=== PATIENT | male | born 1935 | race Caucasian/White ===

== ENCOUNTER 2021-02-27 18:31 | Observation (INO) | payer MEDICARE ==
[2021-02-27 20:06] LABS: ALT (SGPT) 37 U/L (8-55); AST (SGOT) 34 U/L (5-34); Albumin 4.3 g/dL (3.4-4.8); Alkaline Phosphatase 62 U/L (40-110); Anion Gap 15 mmol/L (10-20); BUN (Urea Nitrogen) 12 mg/dL (8.4-25.7); Bilirubin, Total 0.6 mg/dL (0.2-1.2); CK (CPK) 43 U/L (30-200); Calc. Creatinine Clearance 0 mL/min (70-130); Calcium 8.9 mg/dL (7.8-10.44); Carbon Dioxide 23 mmol/L (23-31); Chloride 104 mmol/L (98-107); Globulin 2.9 g/dL (2.4-3.5); Glucose 99 mg/dL (83-110); Lipase 11 U/L (8-78); Potassium 4.3 mmol/L (3.5-5.1); Protein, Total 7.2 g/dL (5.8-8.1); Sodium 138 mmol/L (136-145)
[2021-02-27 20:17] LABS: #Basophils 0.1 10x3/uL (0.0-0.2); #Eosinphils 0.1 10x3/uL (0.0-0.5); #Monocytes 1.1 10x3/uL (0.0-1.1); #Neutrophils 6.3 10x3/uL (1.5-8.4); %Basophils 0.8 % (0.0-2.0); %Eosinophils 1.2 % (0.0-6.0); %Lymphocytes 10.1 % (18.0-47.0); %Monocytes 13.1 % (0.0-10.0); Hemoglobin 15.3 g/dL (13.5-17.5); Mean Corpuscular HGB CONC 33.3 g/dL (32.0-36.0); Mean Corpuscular Hemoglobin 29.3 pg (27.0-33.0); Mean Platelet Volume 11.4 fl (7.4-10.4); Platelet Count 102 10x3/uL (150-450); RBC Distribution Width 13.5 % (11.5-14.5); Red Blood Cell (RBC) Count 5.23 10x6/uL (4.32-5.72); White Blood Cell (WBC) Count 8.5 10x3/uL (3.5-10.5)
[2021-02-27 20:37] LABS: Bilirubin Neg (Negative); Blood, Urine 50 (Negative); Clarity Clear (Clear); Glucose, Urine (Dipstick) Normal (Negative); Ketone, Urine Negative (Negative); Leukocyte Negative (Negative); Nitrite Negative (Negative); Protein, Urine (Dipstick) 30 mg/dl (Neg-Trace); Urobilinogen Normal mg/dL (Less than 2)
[2021-02-27 20:48] LABS: Bacteria/HPF 1+ HPF (None Seen); Squamous Epithelial 0-3 HPF (0-3); Transitional Epithelial 0-3 HPF (None Seen)
[2021-02-28] MEDS ORDERED: Calcium Carbonate 500 MG ChewTAB PO PRN (01:41)
[2021-02-28] MEDS ORDERED: Acetaminophen 325 MG TAB PO PRN (01:41)
[2021-02-28] MEDS ORDERED: Senokot S 8.6-50 MG TAB PO PRN (01:41)
[2021-02-28] MEDS ORDERED: HYDROcodone/Acetaminophen 5/325 mg Tablet PO PRN (01:41)
[2021-02-28] MEDS ORDERED: Ondansetron PF 4 MG/2 ML Vial IVP PRN (01:41)
[2021-02-28 01:44] LABS: SARS-CoV-2 NAA Rapid Test DETECTED (NotDetected)
[2021-02-28] MEDS ORDERED: hydrALAZINE 20 MG/ML VIAL SLOW IVP PRN (01:44)
[2021-02-28] MEDS ORDERED: Losartan 25 MG TAB PO SCH (02:15)
[2021-02-28] MEDS ORDERED: Amlodipine 5 MG TAB PO SCH (02:15)
[2021-02-28] MEDS ORDERED: Amlodipine 5 MG TAB ONE (03:40)
[2021-02-28] MEDS ORDERED: Losartan 25 MG TAB ONE (03:40)
[2021-02-28 05:12] LABS: Anion Gap 14 mmol/L (10-20); BUN (Urea Nitrogen) 12 mg/dL (8.4-25.7); Calc. Creatinine Clearance 0 mL/min (70-130); Calcium 8.4 mg/dL (7.8-10.44); Carbon Dioxide 23 mmol/L (23-31); Chloride 104 mmol/L (98-107); Glucose 100 mg/dL (83-110); Magnesium 1.7 mg/dL (1.6-2.6); Potassium 3.6 mmol/L (3.5-5.1); Sodium 137 mmol/L (136-145)
[2021-02-28] MEDS ORDERED: Zinc Gluconate 50 MG TAB PO SCH (09:00)
[2021-02-28] MEDS: Losartan Potassium 50 MG TAB PO SCH (10:22)
[2021-02-28] MEDS: Amlodipine 5 MG TAB PO SCH (10:22)
[2021-02-28] MEDS: Ascorbic Acid 500 mg Chewable Tablet PO SCH (10:22)
[2021-02-28] MEDS: Enoxaparin Sodium 40 MG/0.4 ML SYRINGE SC SCH (10:22)
[2021-02-28] MEDS: Cholecalciferol 1,000 UNITS (25 MCG) TAB PO SCH (10:23)
[2021-02-28] MEDS: Zinc Sulfate 220 MG CAP PO SCH (10:23)
[2021-02-28] MEDS: Carbidopa/Levodopa 25-100 mg Tablet PO SCH ×3 (10:24→18:30)
[2021-02-28 12:38] VITALS: BMI 37.5
[2021-03-01] MEDS: Carbidopa/Levodopa 25-100 mg Tablet PO SCH ×2 (01:45→06:45)
[2021-03-01 05:50] LABS: Anion Gap 13 mmol/L (10-20); BUN (Urea Nitrogen) 15 mg/dL (8.4-25.7); Calc. Creatinine Clearance 86 mL/min (70-130); Calcium 8.4 mg/dL (7.8-10.44); Carbon Dioxide 24 mmol/L (23-31); Chloride 103 mmol/L (98-107); Glucose 97 mg/dL (83-110); Potassium 3.4 mmol/L (3.5-5.1); Sodium 137 mmol/L (136-145)
[2021-03-01 06:43] LABS: Hemoglobin 14.3 g/dL (13.5-17.5); Mean Corpuscular HGB CONC 33.3 g/dL (32.0-36.0); Mean Corpuscular Volume 87.2 fl (81.2-95.1); Mean Platelet Volume 11.7 fl (7.4-10.4); Platelet Count 168 10x3/uL (150-450); RBC Distribution Width 13.5 % (11.5-14.5); Red Blood Cell (RBC) Count 4.93 10x6/uL (4.32-5.72); White Blood Cell (WBC) Count 6.3 10x3/uL (3.5-10.5)
[2021-03-01 07:28] LABS: MDiff Complete? YES; Platelet Morphology Comment Appears Adequate
[2021-03-01 07:29] LABS: RBC Morphology Normal
[2021-03-01 07:32] LABS: Band 7 % (5-11); Lymphocytes 11 % (21-51); Monocytes 18 % (0-10); Neutrophil 63 % (42-75)
[2021-03-01] MEDS ORDERED: Potassium Chloride 20 MEQ TAB PO SCH (08:30)
[2021-03-01] MEDS: Ascorbic Acid 500 mg Chewable Tablet PO SCH (09:55)
[2021-03-01] MEDS: Zinc Sulfate 220 MG CAP PO SCH (09:55)
[2021-03-01] MEDS: Losartan Potassium 50 MG TAB PO SCH (09:55)
[2021-03-01] MEDS: Amlodipine 5 MG TAB PO SCH (09:55)
[2021-03-01] MEDS: Cholecalciferol 1,000 UNITS (25 MCG) TAB PO SCH (09:55)
[2021-03-01] MEDS: Enoxaparin Sodium 40 MG/0.4 ML SYRINGE SC SCH (09:56)
[2021-03-01] MEDS ORDERED: Carbidopa/Levodopa CR 50-200 mg Tablet PO SCH (21:00)
[2021-03-02 08:04] LABS: Hemoglobin 15.2 g/dL (13.5-17.5); Mean Corpuscular Hemoglobin 28.8 pg (27.0-33.0); Mean Corpuscular Volume 87.1 fl (81.2-95.1); Platelet Count 170 10x3/uL (150-450); RBC Distribution Width 13.7 % (11.5-14.5); Red Blood Cell (RBC) Count 5.28 10x6/uL (4.32-5.72); White Blood Cell (WBC) Count 7.4 10x3/uL (3.5-10.5)
[2021-03-02 08:05] LABS: MDiff Complete? YES
[2021-03-02 08:55] LABS: Eosinophils 1 % (0-10); Lymphocytes 35 % (21-51); Monocytes 18 % (0-10); Neutrophil 44 % (42-75); Reactive Lymphocytes 2 % (0-10)
[2021-03-02 08:56] LABS: Platelet Morphology Comment Appears Adequate; RBC Morphology Normal
[2021-03-02] MEDS ORDERED: Amlodipine 5 MG TAB PO SCH (09:00)
[2021-03-02] MEDS ORDERED: Losartan Potassium 50 MG TAB PO SCH (09:00)
[2021-03-02 09:44] LABS: Anion Gap 15 mmol/L (10-20); BUN (Urea Nitrogen) 17 mg/dL (8.4-25.7); Calc. Creatinine Clearance 84 mL/min (70-130); Calcium 8.4 mg/dL (7.8-10.44); Carbon Dioxide 23 mmol/L (23-31); Chloride 105 mmol/L (98-107); Glucose 87 mg/dL (83-110); Potassium 3.6 mmol/L (3.5-5.1); Sodium 139 mmol/L (136-145)
[2021-03-02] MEDS: Zinc Sulfate 220 MG CAP PO SCH (10:17)
[2021-03-02] MEDS: Enoxaparin Sodium 40 MG/0.4 ML SYRINGE SC SCH (10:17)
[2021-03-02] MEDS: Ascorbic Acid 500 mg Chewable Tablet PO SCH (10:17)
[2021-03-02] MEDS: Cholecalciferol 1,000 UNITS (25 MCG) TAB PO SCH (10:17)
[2021-03-02 21:55] VITALS: BP 151/81; TEMP 98.2
== END 2021-03-02 18:15 ==
LOC: CSHERS 18:31 → INTOOBSV 02-28 03:19 → CSHERHOLD 02-28 03:19 → CSHTELE 02-28 09:14
PROVIDERS: ADMIT Student in an Organized Health Care Education/Training Program; ATTEND Nurse Practitioner Family
DX: U07.1 COVID-19 (principal); G20 Parkinson's disease; R53.1 Weakness; I16.0 Hypertensive urgency; E87.6 Hypokalemia; I12.9 Hypertensive chronic kidney disease with stage 1 through stage 4 chronic kidney disease, or unspecified chronic kidney disease; N18.2 Chronic kidney disease, stage 2 (mild); Z79.899 Other long term (current) drug therapy; Z20.822 Contact with and (suspected) exposure to COVID-19
CPT/HCPCS: 0240U; 51701; 70450; 71045; 80048 ×3; 80053; 82550; 82607; 82728; 82746; 83690; 83735; 84443; 84484; 85025 ×3; 86140; 87040; 87086; 93005; 96372 ×3; 97139 ×4; 97530 ×4; 97535; 99285; G0378 ×4; 36415; 81003; 81015; J1650

== ENCOUNTER 2021-07-22 13:22 | Observation (INO) | payer MEDICARE, OTHER ==
[~2021-07-22 13:22] MED LIST: Iopamidol 370 76% 100 ML VIAL ONE
[2021-07-22 14:31] LABS: #Eosinphils 0.2 10x3/uL (0.0-0.5); #Monocytes 0.7 10x3/uL (0.0-1.1); #Neutrophils 4.8 10x3/uL (1.5-8.4); %Basophils 0.3 % (0.0-2.0); %Lymphocytes 24.2 % (18.0-47.0); %Monocytes 9.7 % (0.0-10.0); %Neutrophils 62.4 % (40.0-75.0); Hemoglobin 14.6 g/dL (13.5-17.5); Mean Corpuscular HGB CONC 33.3 g/dL (32.0-36.0); Mean Corpuscular Hemoglobin 28.8 pg (27.0-33.0); Mean Corpuscular Volume 86.4 fl (81.2-95.1); Mean Platelet Volume 11.6 fl (7.4-10.4); Platelet Count 208 10x3/uL (150-450); RBC Distribution Width 13.5 % (11.5-14.5); Red Blood Cell (RBC) Count 5.07 10x6/uL (4.32-5.72); White Blood Cell (WBC) Count 7.6 10x3/uL (3.5-10.5)
[2021-07-22 14:45] LABS: ALT (SGPT) 13 U/L (8-55); AST (SGOT) 15 U/L (5-34); Acetaminophen Less than 10.0 mcg/mL (10.0-30.0); Albumin 4.4 g/dL (3.4-4.8); Alcohol Less than 10 mg/dL (Less than 10); Alkaline Phosphatase 63 U/L (40-110); Anion Gap 16 mmol/L (10-20); BUN (Urea Nitrogen) 11 mg/dL (8.4-25.7); Bilirubin, Total 0.6 mg/dL (0.2-1.2); CK (CPK) 48 U/L (30-200); Calc. Creatinine Clearance 0 mL/min (70-130); Calcium 9.3 mg/dL (7.8-10.44); Carbon Dioxide 27 mmol/L (23-31); Chloride 103 mmol/L (98-107); Globulin 2.9 g/dL (2.4-3.5); Glucose 91 mg/dL (83-110); Potassium 3.2 mmol/L (3.5-5.1); Protein, Total 7.3 g/dL (5.8-8.1); Salicylate Less than 8.0 mg/dL (15.0-30.0); Sodium 143 mmol/L (136-145)
[2021-07-22] MEDS ORDERED: Meclizine HCl 25 MG TAB ONE (15:29)
[2021-07-22 16:14] LABS: Bilirubin Neg (Negative); Blood, Urine Negative (Negative); Clarity Clear (Clear); Glucose, Urine (Dipstick) Normal (Negative); Ketone, Urine Negative (Negative); Leukocyte Negative (Negative); Nitrite Negative (Negative); Protein, Urine (Dipstick) Negative (Neg-Trace); Specific Gravity, Urine 1.005 (1.002-1.036); Urobilinogen Normal mg/dL (Less than 2)
[2021-07-22 16:22] LABS: Amphetamine Not Detected (NotDetected); Barbiturates Screen Not Detected (NotDetected); Benzodiazepine Screen Not Detected (NotDetected); Cocaine Metabolite Screen Not Detected (NotDetected); Methadone Not Detected (NotDetected); Methamphetamine Not Detected (NotDetected); Opiate Screen Not Detected (NotDetected); Oxycodone Screen Not Detected (NotDetected); Phencyclidine (PCP) Not Detected (NotDetected); THC/Cannabinoid Screen Not Detected (NotDetected); Tricyclic Screen Not Detected (NotDetected)
[2021-07-22] MEDS ORDERED: Acetaminophen 325 MG TAB PO PRN (18:13)
[2021-07-22 18:24] VITALS: BMI 36.0
[2021-07-22] MEDS ORDERED: Potassium Chloride 20 MEQ TAB PO SCH (18:45)
[2021-07-22] MEDS ORDERED: Aspirin 81 mg Enteric Coated Tablet PO SCH (19:00)
[2021-07-22] MEDS ORDERED: Carbidopa/Levodopa CR 50-200 mg Tablet PO SCH (21:45)
[2021-07-22] MEDS: Atorvastatin Calcium 40 MG TAB PO SCH (22:18)
[2021-07-23 04:46] LABS: #Basophils 0.1 10x3/uL (0.0-0.2); #Eosinphils 0.4 10x3/uL (0.0-0.5); #Monocytes 0.9 10x3/uL (0.0-1.1); #Neutrophils 5.7 10x3/uL (1.5-8.4); %Basophils 0.5 % (0.0-2.0); %Eosinophils 3.8 % (0.0-6.0); %Lymphocytes 24.1 % (18.0-47.0); %Neutrophils 61.3 % (40.0-75.0); Hemoglobin 13.9 g/dL (13.5-17.5); Mean Corpuscular HGB CONC 32.9 g/dL (32.0-36.0); Mean Corpuscular Hemoglobin 28.7 pg (27.0-33.0); Mean Corpuscular Volume 87.2 fl (81.2-95.1); Mean Platelet Volume 11.4 fl (7.4-10.4); Platelet Count 205 10x3/uL (150-450); RBC Distribution Width 13.5 % (11.5-14.5); Red Blood Cell (RBC) Count 4.85 10x6/uL (4.32-5.72); White Blood Cell (WBC) Count 9.2 10x3/uL (3.5-10.5)
[2021-07-23 05:06] LABS: Anion Gap 16 mmol/L (10-20); BUN (Urea Nitrogen) 13 mg/dL (8.4-25.7); Calc. Creatinine Clearance 90 mL/min (70-130); Calcium 8.8 mg/dL (7.8-10.44); Carbon Dioxide 25 mmol/L (23-31); Cardiac Risk 4.5 (Less than 4.5); Chloride 108 mmol/L (98-107); Cholesterol 159 mg/dl (< 200 Desired); Glucose 93 mg/dL (83-110); HDL Cholesterol 35 mg/dL (>60 Neg Risk); LDL Cholesterol, Calculated 99 mg/dL; Potassium 4.6 mmol/L (3.5-5.1); Sodium 144 mmol/L (136-145); Triglycerides 125 mg/dL (Less than 150)
[2021-07-23] MEDS ORDERED: Carbidopa/Levodopa 25-100 mg Tablet PO SCH (08:00)
[2021-07-23] MEDS ORDERED: Enoxaparin Sodium 40 MG/0.4 ML SYRINGE SC SCH (09:00)
[2021-07-23] MEDS: Aspirin 81 mg Enteric Coated Tablet PO SCH (10:02)
[2021-07-23 13:50] LABS: Hemoglobin A1c 5.3 % (4.0-6.0)
[2021-07-23 15:21] LABS: SARS-CoV-2 PCR by NAA Not Detected (NotDetected)
[2021-07-23] MEDS ORDERED: Carbidopa/Levodopa CR 50-200 mg Tablet PO SCH (21:00)
[2021-07-23] MEDS: Atorvastatin Calcium 40 MG TAB PO SCH (22:28)
[2021-07-24 04:29] VITALS: TEMP 97.5
[2021-07-24] MEDS: Aspirin 81 mg Enteric Coated Tablet PO SCH (09:43)
[2021-07-24 12:11] VITALS: BP 158/71
== END 2021-07-24 13:40 ==
LOC: CSHERS 13:22 → CSHTELE 18:23 → INTOOBSV 18:23
PROVIDERS: ADMIT Internal Medicine; ATTEND Physician Assistant
DX: R42 Dizziness and giddiness (principal); R26.9 Unspecified abnormalities of gait and mobility; R53.1 Weakness; E87.6 Hypokalemia; I12.9 Hypertensive chronic kidney disease with stage 1 through stage 4 chronic kidney disease, or unspecified chronic kidney disease; N18.2 Chronic kidney disease, stage 2 (mild); I16.0 Hypertensive urgency; G20 Parkinson's disease; F02.80 Dementia in other diseases classified elsewhere, unspecified severity, without behavioral disturbance, psychotic disturbance, mood disturbance, and anxiety; R53.81 Other malaise; W06.XXXA Fall from bed, initial encounter; Y92.009 Unspecified place in unspecified non-institutional (private) residence as the place of occurrence of the external cause; Z91.81 History of falling; Z20.822 Contact with and (suspected) exposure to COVID-19
CPT/HCPCS: 70450; 70498; 70551; 71045; 72170; 80048; 80061; 80306; 80307; 81003; 82550; 83036; 83605; 83735; 85025; 93005; 93306; 93880; 96360; 97116 ×2; 97139; 97530; 97535; 99285; G0378 ×4; U0003; U0005; 36415; 80053; 84443; Q9967

== ENCOUNTER 2024-03-14 22:27 | Inpatient (IN) | payer MEDICARE, OTHER ==
[2024-03-15 00:41] LABS: #Basophils 0.04 10x3/uL (0.0-0.2); #Eosinophils 0.51 10x3/uL (0.0-0.5); #Monocytes 1.08 10x3/uL (0.0-1.1); #Neutrophils 10.17 10x3/uL (1.5-8.4); %Basophils 0.3 % (0.0-2.0); %Eosinophils 3.6 % (0.0-6.0); %Lymphocytes 16.2 % (18.0-47.0); %Monocytes 7.6 % (0.0-10.0); %Neutrophils 71.3 % (40.0-75.0); Hematocrit 38.7 % (38.8-50.0); Hemoglobin 12.3 g/dL (13.5-17.5); Mean Corpuscular HGB CONC 31.8 g/dL (32.0-36.0); Mean Corpuscular Hemoglobin 27.9 pg (27.0-33.0); Mean Corpuscular Volume 87.8 fL (81.2-95.1); Mean Platelet Volume 10.2 fL (7.4-10.4); Platelet Count 318 10x3/uL (150-450); RBC Distribution Width 14.9 % (11.5-14.5); Red Blood Cell (RBC) Count 4.41 10x6/uL (4.32-5.72); White Blood Cell (WBC) Count 14.25 10x3/uL (3.5-10.5)
[2024-03-15 00:51] LABS: INR-International Normal Ratio 1.1; PTT 35.6 sec (22.0-33.0); Prothrombin Time 11.5 sec (9.5-12.1)
[2024-03-15 00:53] LABS: ALT (SGPT) Less than 7 U/L (8-55); AST (SGOT) 12 U/L (5-34); Albumin 3.3 g/dL (3.4-4.8); Alkaline Phosphatase 52 U/L (40-110); Anion Gap 15 mmol/L (10-20); BUN (Urea Nitrogen) 26 mg/dL (8.4-25.7); Bilirubin, Total 0.3 mg/dL (0.2-1.2); Calc. Creatinine Clearance 0 mL/min (70-130); Calcium 8.3 mg/dL (7.8-10.44); Carbon Dioxide 25 mmol/L (23-31); Chloride 103 mmol/L (98-107); Estimated GFR 49; Globulin 3.1 g/dL (2.4-3.5); Glucose 116 mg/dL (83-110); Magnesium 2.2 mg/dL (1.6-2.6); Potassium 3.9 mmol/L (3.5-5.1); Protein, Total 6.4 g/dL (5.8-8.1); Sodium 139 mmol/L (136-145)
[2024-03-15 01:00] LABS: Troponin I Less than 0.010 ng/mL (< 0.028)
[2024-03-15] MEDS ORDERED: Piperacillin/Tazobactam 4.5 GM VIAL ONE (03:39)
[2024-03-15] MEDS ORDERED: Senokot S 8.6-50 MG TAB PO PRN (03:59)
[2024-03-15] MEDS ORDERED: Ondansetron PF 4 MG/2 ML Vial IVP PRN (03:59)
[2024-03-15] MEDS ORDERED: Calcium Carbonate 500 MG ChewTAB PO PRN (03:59)
[2024-03-15] MEDS ORDERED: Guaifenesin DM 100-10/5 ML UDCUP PO PRN (03:59)
[2024-03-15] MEDS ORDERED: traMADol HCl 50 MG TAB PO PRN (03:59)
[2024-03-15] MEDS ORDERED: Acetaminophen 325 MG TAB PO PRN (03:59)
[2024-03-15] MEDS ORDERED: Vancomycin 1 GM VIAL ONE (04:25)
[2024-03-15] MEDS: Cefepime 1 GM in Sodium Chloride 0.9% 100 ML IVPB SCH (09:05)
[2024-03-15] MEDS: Pantoprazole 40 MG DR.TAB PO SCH (09:06)
[2024-03-15] MEDS: Multivitamin W/ Minerals 1 TAB PO SCH (09:06)
[2024-03-15] MEDS: Venlafaxine XR 37.5 MG CAP PO SCH (09:06)
[2024-03-15] MEDS: Carbidopa/Levodopa 25-100 mg Tablet PO SCH (09:06)
[2024-03-15] MEDS: Amlodipine 10 MG TAB PO SCH (09:06)
[2024-03-15] MEDS: Lactated Ringer's 1,000 ML IV SCH (09:07)
[2024-03-15 11:39] VITALS: BMI 40.7
[2024-03-15] MEDS: CEFAZOLIN 1 GM in Sodium Chloride 0.9% 100 ML IVPB SCH (13:20)
[2024-03-15] MEDS ORDERED: Vancomycin 1 GM in Premix 1 BAG IVPB SCH (21:00)
[2024-03-15] MEDS: Carbidopa/Levodopa CR 50-200 mg Tablet PO SCH (21:03)
[2024-03-15] MEDS: Mirtazapine 15 MG TAB PO SCH (21:03)
[2024-03-15] MEDS: Enoxaparin 40 MG (0.4 mL) SYRINGE SC SCH (21:03)
[2024-03-15] MEDS: Atorvastatin Calcium 40 MG TAB PO SCH (21:03)
[2024-03-16 04:19] LABS: #Basophils 0.05 10x3/uL (0.0-0.2); #Eosinophils 0.37 10x3/uL (0.0-0.5); #Monocytes 1.06 10x3/uL (0.0-1.1); #Neutrophils 7.46 10x3/uL (1.5-8.4); %Basophils 0.5 % (0.0-2.0); %Eosinophils 3.3 % (0.0-6.0); %Lymphocytes 18.4 % (18.0-47.0); %Monocytes 9.6 % (0.0-10.0); %Neutrophils 67.5 % (40.0-75.0); Hematocrit 36.2 % (38.8-50.0); Hemoglobin 11.6 g/dL (13.5-17.5); Mean Corpuscular Hemoglobin 28.1 pg (27.0-33.0); Mean Corpuscular Volume 87.7 fL (81.2-95.1); Mean Platelet Volume 9.9 fL (7.4-10.4); Platelet Count 268 10x3/uL (150-450); RBC Distribution Width 14.7 % (11.5-14.5); Red Blood Cell (RBC) Count 4.13 10x6/uL (4.32-5.72); White Blood Cell (WBC) Count 11.06 10x3/uL (3.5-10.5)
[2024-03-16 04:31] LABS: Anion Gap 13 mmol/L (10-20); BUN (Urea Nitrogen) 15 mg/dL (8.4-25.7); Calc. Creatinine Clearance 84 mL/min (70-130); Calcium 8.4 mg/dL (7.8-10.44); Carbon Dioxide 23 mmol/L (23-31); Chloride 108 mmol/L (98-107); Estimated GFR 75; Glucose 91 mg/dL (83-110); Sodium 140 mmol/L (136-145)
[2024-03-16 10:27] VITALS: BMI 40.7
[2024-03-17 12:20] VITALS: BP 151/70; TEMP 98
== END 2024-03-17 14:02 | disposition home or self-care (01) | DRG 603 ==
LOC: CSHERS 22:27 → CSHTELE 03-15 07:14 → OBSVTOIN 03-15 07:14
PROVIDERS: ADMIT Student in an Organized Health Care Education/Training Program; ATTEND Student in an Organized Health Care Education/Training Program
DX: L03.115 Cellulitis of right lower limb (principal); N17.9 Acute kidney failure, unspecified; L03.116 Cellulitis of left lower limb; G20.A1 Parkinson's disease without dyskinesia, without mention of fluctuations; I12.9 Hypertensive chronic kidney disease with stage 1 through stage 4 chronic kidney disease, or unspecified chronic kidney disease; N18.2 Chronic kidney disease, stage 2 (mild); E78.5 Hyperlipidemia, unspecified; I83.009 Varicose veins of unspecified lower extremity with ulcer of unspecified site; Z66 Do not resuscitate; Z78.9 Other specified health status
CPT/HCPCS: 36415; 71045; 80048; 80053; 83735; 83880; 84443; 84484; 85025; 85610; 85730; 86140; 87040; 93970; 96365; 96375; 97139; J0690; J0692; J1650; J2543; J3370; J7120